=== PATIENT | female | born 1945 | race Two or more races ===

== ENCOUNTER 2024-07-16 06:21 | Day surgery (SDC) | payer OTHER ==
[2024-07-08 08:28] VITALS: BP 130/70
[2024-07-08 08:31] LABS: PH,URINE 5.5 (5.0-8.0); URINE APPEARANCE Clear; URINE BILIRRUBIN Negative (NEGATIVE); URINE BLOOD Trace; URINE COLOR Dark Yellow; URINE GLUCOSE Negative (NEGATIVE); URINE KETONE Trace (NEGATIVE); URINE LEUKOCYTE Negative; URINE NITRATE Negative; URINE PROTEIN 30 (NEGATIVE)
[2024-07-08 08:32] LABS: URINE BACTERIA 35.2 uL (0.0-1933); URINE CAST 4.88 uL (0.0-1.40); URINE EPITHELIAL CELLS 36.9 uL (0.0-38.8); URINE RBC 36.7 uL (0.0-20.8); URINE WBC 12.6 uL (0.0-23.2)
[2024-07-08 08:43] LABS: HEMATOCRIT 40.2 % (36.0-45.00); HEMOGLOBIN 13.4 g/dL (12.0-15.00); MEAN CELL VOLUME 80.3 fL (80.00-100.00); MEAN CORPUSCULAR HEMOGLOBIN 26.7 pg (27.00-32.0); MEAN CORPUSCULAR HGB CONC 33.2 g/dl (32.0-36.0); PLATELET COUNT 318 K/uL (150-450); RED CELL DISTRIBUTION WIDTH 14.8 % (11.5-14.5)
[2024-07-08 09:10] LABS: PARTIAL THROMBOPLASTIN TIME 27.6 SECONDS (22.0-34.0); PROTHROMBIN TIME 10.9 SECONDS (9.0-11.5)
[2024-07-08 09:19] LABS: ALBUMIN 3.9 gm/dL (3.4-5.0); BILIRUBIN TOTAL 0.55 mg/dL (0.3-1.2); CALCIUM 9.2 mg/dL (8.5-10.1); CREATININE SERUM 1.05 mg/dL (0.55-1.02); GFR 50.95; GLOBULINA 4.1 G/DL (2.4-3.5); POTASSIUM 3.61 mEq/L (3.5-5.1)
[~2024-07-16] VITALS: Ht 162.6 cm; Wt 102.1 kg
[~2024-07-16 06:21] MED LIST: COZAAR100 MG PO; MULTIPLE VITAM1 EAC2 PO; NORVASC5 MG PO; SINGULAIR10 MG PO
[2024-07-16] MEDS ORDERED: BUPIVACAINE HCL 30 ML VIAL IJ ONE (08:45)
[2024-07-16] MEDS ORDERED: KETOROLAC TROMETHAMINE 30 MG VIAL IJ ONE (08:45)
[2024-07-16] MEDS ORDERED: KETOROLAC TROMETHAMINE 30 MG VIAL IV ONE (08:45)
[2024-07-16] MEDS ORDERED: LIDOCAINE HCL 1%/EPINEPHRINE 20ML VIAL IJ ONE ×2 (08:45)
[2024-07-16] MEDS ORDERED: CEFAZOLIN SODIUM 1,000 MG VIAL IV ONE (11:00)
[2024-07-16] MEDS ORDERED: MORPHINE SULFATE 2 MG/ML CARTRIDGE IV ONE (12:20)
[2024-07-16] MEDS ORDERED: MORPHINE SULFATE 4 MG/ML VIAL IV ONE ×2 (12:50→14:05)
== END 2024-07-16 15:20 | disposition home or self-care (01) ==
LOC: CIR.AMB 06:21
PROVIDERS: ATTEND Orthopaedic Surgery
DX: M75.122 Complete rotator cuff tear or rupture of left shoulder, not specified as traumatic (principal); M75.22 Bicipital tendinitis, left shoulder; M24.112 Other articular cartilage disorders, left shoulder